=== PATIENT | female | born 2000 | race Caucasian/White ===

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

== ENCOUNTER 2022-02-06 14:36 | Emergency (ER) | payer BC, OTHER ==
[~2022-02-06] VITALS: Ht 160 cm; Wt 80.6 kg
[~2022-02-06 14:36] MED LIST changes: -CATHETER FLUSH 10 ML SYR IV PRN; +DICY20TA PO; -DICY20TA10 PO; -HOLD METFORMIN - RECEIVED CONTRAST 20 ML VIAL IV SCH; -IOHEXOL 350 MG/ML 100 ML (OMNIPAQUE 350) VIAL IV ONE; -NS 100 ML (IVPB) BAG IV ONE
--- NOTE | 2022-02-06 14:45 | ED General ---
General Stated Complaint: BLURRY VISION; DIZZINESS; FLUCTUATING BP History of Present Illness Date Seen by Provider: Feb 06, 2022 Time Seen by Provider: 14:40 Initial Comments 21 old female complains of some dizziness feeling of vertigo along with what she describes as blurred vision. Patient reports that started after she ate. She was a little nauseous. 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 Then they checked again it went up into the 90s. That she when she laid down it was back up into the 130s. They checked it twice and it remained in the 130s. Patient still complains of some generalized dizziness and blurred vision. They do report that she is on antibiotic because she has some "blood in her urine" and are treating her for urinary tract infection. Patient has some chronic lower abdominal pain that is unchanged. No reports of fever, chills no ear pain,, headache. Allergies and Home Medications Allergies Coded Allergies: No Known Allergies (Verified Allergy, Unknown, 03/14/20) Patient Home Medication List Home Medication List Reviewed: Yes Dicyclomine HCl (Dicyclomine HCl) 20 Mg Tablet, 20 MG PO BID Prescribed by: NADJA NUÑEZ on 03/14/20 2302 Review of Systems Review of Systems Constitutional: No diaphoresis; dizziness; No fever; weakness EENTM: blurred vision Respiratory: No cough, No short of breath Cardiovascular: No chest pain, No palpitations Gastrointestinal: see HPI; No diarrhea, No nausea, No vomiting Genitourinary: see HPI Musculoskeletal: no symptoms reported Skin: no symptoms reported Psychiatric/Neurological: Anxiety; Denies Headache Hematologic/Lymphatic: No Symptoms Reported Immunological/Allergic: no symptoms reported Past Vizdxhs-Dyqcik-Davuie Hx Seasonal Allergies Seasonal Allergies: No Past Medical History Surgeries: No Respiratory: No Cardiac: No Neurological: No Genitourinary: No Gastrointestinal: No Musculoskeletal: Yes Fractures Endocrine: No HEENT: No Cancer: No Psychosocial: No Integumentary: No Blood Disorders: No Physical Exam Vital Signs Vital Signs - First Documented 02/06/22 14:41 Temp 36.6 Pulse 95 Resp 16 B/P (MAP) 136/79 (98) Pulse Ox 100 O2 Delivery Room Air Capillary Refill : Height, Weight, BMI Height: '" Weight: lbs. oz. kg; BMI Method: General Appearance: No Apparent Distress, WD/WN HEENT: PERRL/EOMI, Pharynx Normal Neck: Full Range of Motion, Normal Inspection, Non Tender, Supple Respiratory: Lungs Clear Cardiovascular: Regular Rate, Rhythm, No Edema Gastrointestinal: Soft, Tenderness (Bilateral lower quadrants) Extremity: Normal Capillary Refill, Normal Inspection, Normal Range of Motion Neurologic/Psychiatric: Alert, Oriented x3, No Motor/Sensory Deficits; No Abnormal Gait Progress/Results/Core Measures Suspected Sepsis SIRS Temperature: Pulse: Respiratory Rate: Laboratory Tests 02/06/22 15:05: White Blood Count 8.1 Blood Pressure / Mean: Laboratory Tests 02/06/22 15:05: Creatinine 0.86, Platelet Count 266, Total Bilirubin 0.2 Results/Orders Lab Results Laboratory Tests Test 02/06/22 14:41 02/06/22 15:00 02/06/22 15:05 Range/Units Urine Color PALE YELLOW Urine Clarity CLEAR Urine pH 6.5 5-9 Urine Specific [place] <=1.005 1.016-1.022 Urine Protein NEGATIVE NEGATIVE Urine Glucose (UA) NEGATIVE NEGATIVE Urine Ketones NEGATIVE NEGATIVE Urine Nitrite NEGATIVE NEGATIVE Urine Bilirubin NEGATIVE NEGATIVE Urine Urobilinogen 0.2 < = 1.0 MG/DL Urine Leukocyte Esterase NEGATIVE NEGATIVE Urine RBC (Auto) TRACE-I H NEGATIVE Urine RBC NONE /HPF Urine WBC RARE /HPF Urine Squamous Epithelial Cells RARE /HPF Urine Crystals NONE /LPF Urine Bacteria NEGATIVE /HPF Urine Casts NONE /LPF Urine Mucus NEGATIVE /LPF Urine Culture Indicated NO Glucometer 117 H 70-110 MG/DL White Blood Count 8.1 4.3-11.0 10^3/uL Red Blood Count 4.56 3.80-5.11 10^6/uL Hemoglobin 13.9 11.5-16.0 g/dL Hematocrit 39 35-52 % Mean Corpuscular Volume 86 80-99 fL Mean Corpuscular Hemoglobin 31 25-34 pg Mean Corpuscular Hemoglobin Concent 36 32-36 g/dL Red Cell Distribution Width 12.7 10.0-14.5 % Platelet Count 266 130-400 10^3/uL Mean Platelet Volume 10.3 9.0-12.2 fL Immature Granulocyte % (Auto) 0 % Neutrophils (%) (Auto) 55 42-75 % Lymphocytes (%) (Auto) 37 12-44 % Monocytes (%) (Auto) 7 0-12 % Eosinophils (%) (Auto) 2 0-10 % Basophils (%) (Auto) 1 0-10 % Neutrophils # (Auto) 4.4 1.8-7.8 10^3/uL Lymphocytes # (Auto) 3.0 1.0-4.0 10^3/uL Monocytes # (Auto) 0.5 0.0-1.0 10^3/uL Eosinophils # (Auto) 0.1 0.0-0.3 10^3/uL Basophils # (Auto) 0.0 0.0-0.1 10^3/uL Immature Granulocyte # (Auto) 0.0 0.0-0.1 10^3/uL Sodium Level 140 135-145 MMOL/L Potassium Level 3.5 L 3.6-5.0 MMOL/L Chloride Level 103 98-107 MMOL/L Carbon Dioxide Level 23 21-32 MMOL/L Anion Gap 14 5-14 MMOL/L Blood Urea Nitrogen 12 7-18 MG/DL Creatinine 0.86 0.60-1.30 MG/DL Estimat Glomerular Filtration Rate 100 BUN/Creatinine Ratio 14 Glucose Level 108 H 70-105 MG/DL Calcium Level 9.3 8.5-10.1 MG/DL Corrected Calcium 9.2 8.5-10.1 MG/DL Magnesium Level 1.8 1.6-2.4 MG/DL Total Bilirubin 0.2 0.1-1.0 MG/DL Aspartate Amino Transf (AST/SGOT) 17 5-34 U/L Alanine Aminotransferase (ALT/SGPT) 18 0-55 U/L Alkaline Phosphatase 72 40-136 U/L Troponin I < 0.30 <0.30 NG/ML C-Reactive Protein < 0.30 <0.50 MG/DL Total Protein 7.4 6.4-8.2 GM/DL Albumin 4.1 3.2-4.5 GM/DL My Orders Orders - WILDER,DELMY L DO Cbc With Automated Diff (02/06/22 14:47) Comprehensive Metabolic Panel (02/06/22 14:47) Magnesium (02/06/22 14:47) Procalcitonin (Pct) (02/06/22 14:47) Accucheck Stat ONCE (02/06/22 14:47) Crp Fs (02/06/22 14:47) Troponin I Fs (02/06/22 14:47) Ekg Tracing (02/06/22 14:47) Monitor-Rhythm Ecg Trace Only (02/06/22 14:47) Urine Bedside (02/06/22 14:47) Orthostatic Vital Signs (Adult (02/06/22 14:47) Ua Culture If Indicated (02/06/22 15:07) Lactated Ringers (Lr 1000 Ml Iv Solution (02/06/22 15:44) Vital Signs/I&O 02/06/22 02/06/22 02/06/22 14:41 15:13 16:30 Temp 36.6 36.6 Pulse 95 81 78 87 117 Resp 16 16 B/P (MAP) 136/79 (98) 111/72 (85) 118/63 121/81 (94) 119/73 (88) Pulse Ox 100 99 O2 Delivery Room Air Room Air Capillary Refill : Progress Note : Time: 16:17 Progress Note Patient with mildly symptomatic upon standing with some mild orthostatic symptoms. Patient otherwise had normal labs and normal physical exam. Patient with negative EKG. Discussed findings with patient. Recommend if it continues she follow-up with her primary care provider if continues having some symptoms to monitor for glucose issues or other orthostatic causes. ECG Initial ECG Impression Date: Feb 06, 2022 Initial ECG Impression Time: 14:57 Initial ECG Rate: 88 Initial ECG Rhythm: Normal Sinus Initial ECG Intervals: Normal Initial ECG Impression: Normal Comment no acute changes Departure Impression Primary Impression: Orthostatic dizziness Disposition: 01 HOME, SELF-CARE Condition: Stable Departure-Patient Inst. Referrals: VALENTINA PROCTOR APRN (PCP) Primary Care Physician [facility] (Family) Primary Care Physician Patient Instructions: Dizziness, Adult ED Add. Discharge Instructions: Please follow-up with your primary care provider if symptoms continue. Recommend he get plenty of rest get plenty of fluids. Return to the ER if s ymptoms worsen or with any other concerns DELMY WILDER DO Feb 06, 2022 14:45
[2022-02-06 15:13] VITALS: BP_SYST 111; BP_SYST 119; BP_SYST 121; BP_DIAS 72; BP_DIAS 73; BP_DIAS 81
[2022-02-06 15:13] LABS: BILIRUBIN,URINE NEGATIVE (NEGATIVE); CLARITY,URINE CLEAR; GLUCOSE, URINE (UA) NEGATIVE (NEGATIVE); KETONES,URINE NEGATIVE (NEGATIVE); LEUKOCYTE ESTERASE ,URINE NEGATIVE (NEGATIVE); NITRITE,URINE NEGATIVE (NEGATIVE); PH,URINE 6.5 (5-9); PROTEIN,URINE NEGATIVE (NEGATIVE)
[2022-02-06 15:20] LABS: BACTERIA,URINE NEGATIVE /HPF; COLOR,URINE PALE YELLOW; SQUAMOUS EPITHELIAL CELL,UR RARE /HPF; WBC,URINE RARE /HPF
[2022-02-06 15:26] LABS: BASOPHILS % (AUTO) 1 % (0-10); EOSINOPHILS # (AUTO) 0.1 10^3/uL (0.0-0.3); EOSINOPHILS % (AUTO) 2 % (0-10); HEMATOCRIT 39 % (35-52); HEMOGLOBIN 13.9 g/dL (11.5-16.0); LYMPHOCYTES % (AUTO) 37 % (12-44); MEAN CORPUSCULAR HEMOGLOBIN 31 pg (25-34); MEAN CORPUSCULAR HGB CONC 36 g/dL (32-36); MEAN CORPUSCULAR VOLUME 86 fL (80-99); MEAN PLATELET VOLUME 10.3 fL (9.0-12.2); MONOCYTES # (AUTO) 0.5 10^3/uL (0.0-1.0); MONOCYTES % (AUTO) 7 % (0-12); NEUTROPHILS # (AUTO) 4.4 10^3/uL (1.8-7.8); NEUTROPHILS % (AUTO) 55 % (42-75); PLATELET COUNT 266 10^3/uL (130-400); WHITE BLOOD COUNT 8.1 10^3/uL (4.3-11.0)
[2022-02-06] MEDS ORDERED: LACTATED RINGERS 1,000 ML IV STA (15:44)
[2022-02-06 15:50] LABS: BILIRUBIN,TOTAL 0.2 MG/DL (0.1-1.0); BUN/CREATININE RATIO 14; CALCIUM 9.3 MG/DL (8.5-10.1); CARBON DIOXIDE 23 MMOL/L (21-32); CHLORIDE 103 MMOL/L (98-107); CREATININE SERUM 0.86 MG/DL (0.60-1.30); GFR ESTIMATED 100; GLUCOSE 108 MG/DL (70-105); MAGNESIUM 1.8 MG/DL (1.6-2.4); POTASSIUM 3.5 MMOL/L (3.6-5.0); SODIUM 140 MMOL/L (135-145)
[2022-02-06 15:51] LABS: ALANINE AMINOTRANSFERASE 18 U/L (0-55); ALBUMIN 4.1 GM/DL (3.2-4.5); ALKALINE PHOSPHATASE 72 U/L (40-136); TOTAL PROTEIN 7.4 GM/DL (6.4-8.2)
[2022-02-06 16:30] VITALS: BP 118/63
== END 2022-02-06 16:30 | disposition home or self-care (01) ==
LOC: EDUNIT# 14:36 → ER FS 14:37
DX: R42 Dizziness and giddiness (principal); N39.0 Urinary tract infection, site not specified; Z28.310 Unvaccinated for COVID-19
CPT/HCPCS: 36415; 80053; 81000; 82947; 83735; 84145; 84484; 84703; 85025; 86141; 93005; 93041